=== PATIENT | male | born 1940 | race Caucasian/White ===

== ENCOUNTER 2016-12-19 17:45 | Emergency (ER) | payer MEDICARE ==
[2016-12-19] MEDS ORDERED: Adacel (T-DAP) 0.5 ML VIAL ONE (18:29)
[2016-12-19] MEDS ORDERED: Bacitracin Zinc 1 Packet ONE (18:45)
== END 2016-12-19 18:51 | disposition home or self-care (01) ==
LOC: BURERS 17:45
DX: S61.412A Laceration without foreign body of left hand, initial encounter (principal); I11.0 Hypertensive heart disease with heart failure; I50.9 Heart failure, unspecified; J43.9 Emphysema, unspecified; I25.2 Old myocardial infarction; E11.9 Type 2 diabetes mellitus without complications; F32.9 Major depressive disorder, single episode, unspecified; Z87.891 Personal history of nicotine dependence; Z79.82 Long term (current) use of aspirin; W26.0XXA Contact with knife, initial encounter
CPT/HCPCS: 12002; 90471; 90715